=== PATIENT | female | born 1965 | race Two or more races ===

== ENCOUNTER 2018-04-26 17:22 | Emergency (ER) | payer OTHER ==
[~2018-04-26] VITALS: Ht 167.6 cm; Wt 81.6 kg
[2018-04-26] MEDS ORDERED: ZYRTEC10 M3 (17:57)
[2018-04-26] MEDS ORDERED: CLARITIN10 MG (17:57)
[2018-04-26] MEDS ORDERED: ALLEGRA ALLERGY60 MG (17:57)
[2018-04-26] MEDS ORDERED: ALBUTEROL S5 MG/1 ML (17:58)
== END 2018-04-26 21:32 | disposition home or self-care (01) ==
LOC: ER 17:22
DX: J45.998 Other asthma (principal)

== ENCOUNTER 2018-06-01 15:22 | Outpatient (CLI) | payer OTHER ==
[~2018-06-01 15:22] MED LIST: ALBUTEROL S5 MG/1 ML; ALLEGRA ALLERGY60 MG; CLARITIN10 MG; ZYRTEC10 M3
== END 2018-06-01 16:43 | disposition home or self-care (01) ==
LOC: SONOGRAMA 15:22
DX: Z12.31 Encounter for screening mammogram for malignant neoplasm of breast (principal); N60.11 Diffuse cystic mastopathy of right breast; N60.12 Diffuse cystic mastopathy of left breast; E04.1 Nontoxic single thyroid nodule

== ENCOUNTER 2019-08-14 10:31 | Outpatient (CLI) | payer OTHER | END 2019-08-14 11:05 | disposition home or self-care (01) | LOC: NUCLEAR 10:31 | DX: M85.80 Other specified disorders of bone density and structure, unspecified site (principal); Z13.820 Encounter for screening for osteoporosis; N95.1 Menopausal and female climacteric states ==

== ENCOUNTER → 2019-08-14 | Outpatient (CLI) | payer OTHER | END | disposition home or self-care (01) | LOC: MAMO-SONO 11:15 | DX: N64.4 Mastodynia (principal); R92.2 Inconclusive mammogram; N63.10 Unspecified lump in the right breast, unspecified quadrant; N63.20 Unspecified lump in the left breast, unspecified quadrant; Z78.0 Asymptomatic menopausal state; Z78.9 Other specified health status; N60.19 Diffuse cystic mastopathy of unspecified breast ==

== ENCOUNTER 2020-02-11 14:16 | Outpatient (CLI) | payer OTHER | END 2020-02-11 14:32 | disposition home or self-care (01) | LOC: TOM 14:16 | PROVIDERS: ATTEND Otolaryngology | DX: J33.0 Polyp of nasal cavity (principal); J33.8 Other polyp of sinus ==

== ENCOUNTER → 2020-10-20 12:13 | Outpatient (CLI) | payer OTHER | END | disposition home or self-care (01) | LOC: PPH VACUNA 12:13 | DX: Z23 Encounter for immunization (principal) ==

== ENCOUNTER 2020-12-08 12:14 | Outpatient (CLI) | payer OTHER | END 2020-12-08 14:49 | disposition home or self-care (01) | LOC: MAMO-SONO 12:14 → SONOGRAMA 12:14 → MAMO-SONO 14:49 | PROVIDERS: ATTEND Obstetrics & Gynecology Gynecology | DX: Z78.0 Asymptomatic menopausal state (principal); R92.2 Inconclusive mammogram; Z80.3 Family history of malignant neoplasm of breast ==

== ENCOUNTER 2020-12-08 14:53 | Outpatient (CLI) | payer OTHER | END 2020-12-08 14:54 | disposition home or self-care (01) | LOC: NUCLEAR 14:53 | PROVIDERS: ATTEND Obstetrics & Gynecology Gynecology | DX: N95.1 Menopausal and female climacteric states (principal); Z13.820 Encounter for screening for osteoporosis; M81.0 Age-related osteoporosis without current pathological fracture ==

== ENCOUNTER 2021-07-15 08:00 | Outpatient (CLI) | payer OTHER | END 2021-07-15 08:30 | disposition home or self-care (01) | LOC: PPH VACUNA 08:00 | PROVIDERS: ATTEND Emergency Medicine Pediatric Emergency Medicine | DX: Z23 Encounter for immunization (principal) ==

== ENCOUNTER 2022-03-24 10:23 | Outpatient (CLI) | payer OTHER | END 2022-03-24 10:30 | disposition home or self-care (01) | LOC: MAMO-SONO 10:23 | PROVIDERS: ATTEND Specialist | DX: Z12.31 Encounter for screening mammogram for malignant neoplasm of breast (principal); N63.0 Unspecified lump in unspecified breast ==

== ENCOUNTER 2022-11-13 05:37 | Inpatient (IN) | payer OTHER ==
[~2022-11-13] VITALS: Ht 165.1 cm; Wt 68.0 kg
--- NOTE | 2022-11-13 05:42 | NUR ---
SE RECIBE PTE EN AMBULANCIA SIN ACOMPANANTE, LA MISMA ORINETADA Y ALERTA X3 REFIERE PRESENTAR DOLOR ABDOMINAL BREANNA EL CESAR DE HOY. SE ACOMODA EN SULMA CON BARANDAS ELEVADAS PARA SER EVALUADA POR EL DOCTOR EN TURNO.
--- NOTE | 2022-11-13 06:17 | NUR ---
PTE EVALUADO POR DR. NASH SE EJECUTA ORDEN MEDICA Y SE REALIZA GET DE MUESTRA BAJO MEDIDAS ASEPTICAS Y SE CANALIZA #18 MANO RT SE OBSERVA AREA LAINEY EDEMAS Y ENROJECIMIENTO.
--- NOTE | 2022-11-13 07:19 | NUR ---
SE RECIBE PTE ALERTA Y ORIENTADO POR 3 EN EL AREA DE OBSERVACION EN SULMA CON BARANDAS ELEVADA Y TIMBRE ACCESIBLE PTE NO PRESENTA DOLOR AL MOMENTO, SE OBSERVA VENOPUNCION PATENTE Y LAINEY DE EDEMA PTE SE MANTIENE EN OBSERVACIONM Y BAJO TRATAMIENTO. PTE EN ESEPRA DE ESTUDIO DE CT
--- NOTE | 2022-11-13 14:51 | NUR ---
SE RECIBE PTE FEMENINA DE 57 ANOS ALERTA Y ORIENTADA X3 QUIEN AL MOMENTO NO REFIERE DOLOR PTE AL MOMENTO CANALIZADO EN MANO IZQ RECIBE RL A 150 MLS/HRA. PTE PEND A CONSULTA.
--- NOTE | 2022-11-13 15:42 | NUR ---
SE RECIBE PTE CON TEMPERATURA 100.3 LA MISMO REFIERE QUE YA LE HABIAN ADMINISTRADO ACETAMINOPHEN DEL TURNO ANTERIOR.
[2022-11-15] MEDS ORDERED: ROSUVASTATIN CAL5 MG (15:07)
== END 2022-11-20 10:49 | disposition home or self-care (01) | DRG 339 ==
LOC: ER 05:37 → SURH 17:55
PROVIDERS: Surgery; ADMIT Internal Medicine; ATTEND Internal Medicine
PROC: BW21YZZ Computerized Tomography (CT Scan) of Abdomen and Pelvis using Other Contrast (ICD-10-PCS; 2022-11-13)
PROC: 0DTJ4ZZ Resection of Appendix, Percutaneous Endoscopic Approach (ICD-10-PCS; principal; 2022-11-13 20:00)
PROC: BW21YZZ Computerized Tomography (CT Scan) of Abdomen and Pelvis using Other Contrast (ICD-10-PCS; 2022-11-18)
PROC: 0W9G3ZZ Drainage of Peritoneal Cavity, Percutaneous Approach (ICD-10-PCS; 2022-11-19)
DX: K35.33 Acute appendicitis with perforation, localized peritonitis, and gangrene, with abscess (principal); J45.901 Unspecified asthma with (acute) exacerbation; K90.49 Malabsorption due to intolerance, not elsewhere classified

== ENCOUNTER 2022-11-24 09:17 | Outpatient (CLI) | payer OTHER ==
[~2022-11-24 09:17] MED LIST changes: +ROSUVASTATIN CAL5 MG
== END 2022-11-24 09:35 | disposition home or self-care (01) ==
LOC: TOM 09:17
DX: K35.21 Acute appendicitis with generalized peritonitis, with abscess (principal)

== ENCOUNTER 2023-07-27 10:22 | Outpatient (CLI) | payer OTHER | END 2023-07-27 10:27 | disposition home or self-care (01) | LOC: RAD 10:22 | DX: G89.18 Other acute postprocedural pain (principal); M25.561 Pain in right knee ==

== ENCOUNTER → 2023-10-24 15:03 | Outpatient (CLI) | payer OTHER | END | disposition home or self-care (01) | LOC: NUCLEAR 15:00 | PROVIDERS: ATTEND Emergency Medicine Pediatric Emergency Medicine | DX: Z01.810 Encounter for preprocedural cardiovascular examination (principal); M81.0 Age-related osteoporosis without current pathological fracture; E78.9 Disorder of lipoprotein metabolism, unspecified; E55.9 Vitamin D deficiency, unspecified; M54.59 Other low back pain ==

== ENCOUNTER 2023-10-24 16:32 | Outpatient (CLI) | payer OTHER | END 2023-10-24 16:37 | disposition home or self-care (01) | LOC: MAMO-SONO 16:32 | PROVIDERS: ATTEND Internal Medicine | DX: Z12.31 Encounter for screening mammogram for malignant neoplasm of breast (principal); Z01.810 Encounter for preprocedural cardiovascular examination; E55.9 Vitamin D deficiency, unspecified; E78.9 Disorder of lipoprotein metabolism, unspecified ==

== ENCOUNTER 2024-07-30 15:10 | Outpatient (CLI) | payer OTHER | END 2024-07-30 15:36 | disposition home or self-care (01) | LOC: SONOGRAMA 15:10 | PROVIDERS: ATTEND Internal Medicine | DX: N63.11 Unspecified lump in the right breast, upper outer quadrant (principal); N63.12 Unspecified lump in the right breast, upper inner quadrant; N60.12 Diffuse cystic mastopathy of left breast; I10 Essential (primary) hypertension; Z01.810 Encounter for preprocedural cardiovascular examination; E78.9 Disorder of lipoprotein metabolism, unspecified; E55.9 Vitamin D deficiency, unspecified; Z13.820 Encounter for screening for osteoporosis; K80.46 Calculus of bile duct with acute and chronic cholecystitis without obstruction; N83.299 Other ovarian cyst, unspecified side ==

== ENCOUNTER 2024-11-19 12:29 | Inpatient (IN) | payer OTHER ==
[~2024-11-19] VITALS: Ht 167.6 cm; Wt 68.0 kg
--- NOTE | 2024-11-19 13:09 | NUR ---
SE PRESENTA PACIENTE ALERTA X 3. LA MISMA REFIERE TENER DEBILIDAD, ESCALOFRIOS, MAREOS Y DOLOR DE PECHO. SE PROCEDE A TONY LOS S/V Y UN EKG. EL MISMO SE LE PRESENTA AL DR. CORBETT. EL SE UBICA A LA PACIENTE EN SULMA 07 CON BARANDAS ELEVADAS Y NIVEL MAS BAJO.
[2024-11-19] MEDS ORDERED: 0.9 % SODIUM CHLORIDE 1,000 ML IV SCH ×2 (13:30→20:15)
[2024-11-19 14:20] LABS: HEMATOCRIT 35.4 % (36.0-45.00); MEAN CELL VOLUME 90.8 fL (80.00-100.00); MEAN CORPUSCULAR HEMOGLOBIN 30.7 pg (27.00-32.0); MEAN CORPUSCULAR HGB CONC 33.8 g/dl (32.0-36.0); PLATELET COUNT 285 K/uL (150-450); RED CELL DISTRIBUTION WIDTH 12.7 % (11.5-14.5)
[2024-11-19] MEDS ORDERED: FAMOTIDINE/PF 20 MG/2 ML VIAL ONE (14:32)
--- NOTE | 2024-11-19 15:19 | NUR ---
SE EJECUTAN ORDENES MEDICAS EN PHIPPS TOTALIDAD
[2024-11-19 16:16] LABS: PH,URINE 5.5 (5.0-8.0); URINE APPEARANCE Cloudy; URINE BILIRRUBIN Negative (NEGATIVE); URINE BLOOD Small; URINE COLOR Dark Yellow; URINE GLUCOSE Negative (NEGATIVE); URINE KETONE 15 (NEGATIVE); URINE LEUKOCYTE Trace; URINE NITRATE Negative; URINE PROTEIN Trace (NEGATIVE); URINE UROBILINOGEN 0.2 E.U./dl
[2024-11-19 16:20] LABS: URINE BACTERIA 1512.7 uL (0.0-1933); URINE EPITHELIAL CELLS 17.2 uL (0.0-38.8); URINE RBC 45.8 uL (0.0-20.8); URINE WBC 284.1 uL (0.0-23.2)
[2024-11-19 16:22] LABS: URINE CAST 0.44 uL (0.0-1.40)
[2024-11-19 17:37] LABS: ALBUMIN 3.9 gm/dL (3.4-5.0); BILIRUBIN TOTAL 0.34 mg/dL (0.3-1.2); CALCIUM 9.4 mg/dL (8.5-10.1); CREATININE SERUM 0.58 mg/dL (0.55-1.02); GFR 105.69; GLOBULINA 3.1 G/DL (2.4-3.5); POTASSIUM 4.35 mEq/L (3.5-5.1); TSH 0.425 uIU/mL (0.358-3.74)
--- NOTE | 2024-11-19 17:48 | NUR ---
SE RECIBE LLAMADA DE LABORATORIO DE MS D GODOY REPORTANDO TROPONINAS EN , SE LE REPORTAN AL DR. HOSIKNS EL CUAL ORDENA SOFTWARE DEVELOPER MID LEVEL A AREA DE CRITICO.
[2024-11-19] MEDS ORDERED: NITROGLYCERIN IN 5 % DEXTROSE 50 MG/250 ML BOTTLE IV ONE (17:59)
--- NOTE | 2024-11-19 18:13 | NUR ---
SE RECIBE PACIENTE EN SULMA A AREA DE CRITICO DE [place] EN CAMA CELESTINA # 2 SE CONECTA A MONITOR CARDIACO Y OXIMETRIA DE PULSO. SE REALIZA EKG Y SE PRESENTA A DR. HOSKINS SE ADMINITRA MEDICAMENTOS CHET ORDEN MEDICA
[2024-11-19] MEDS ORDERED: NITROGLYCERIN 250 ML IV SCH (18:15)
[2024-11-19] MEDS ORDERED: 0.9 % SODIUM CHLORIDE 1,000 ML IV ONE (18:15)
[2024-11-19] MEDS ORDERED: TICAGRELOR 90 MG TABLET PO ONE (18:15)
[2024-11-19] MEDS ORDERED: ASPIRIN 325 MG TABLET PO ONE (18:15)
[2024-11-19] MEDS ORDERED: NITROGLYCERIN IN 5 % DEXTROSE 250 ML IV SCH (19:15)
[2024-11-19] MEDS ORDERED: ATORVASTATIN CALCIUM 40 MG TABLET PO SCH (20:01)
[2024-11-19] MEDS ORDERED: ACETAMINOPHEN 500 MG GEL..CAP PO PRN (20:15)
[2024-11-19] MEDS ORDERED: ENOXAPARIN SODIUM 60 MG/0.6 ML SYRINGE SUBCUTANEO ONE (20:17)
[2024-11-19 21:00] LABS: D DIMER 0.45 MG/L; PARTIAL THROMBOPLASTIN TIME 23.3 SECONDS (22.0-34.0)
[2024-11-19] MEDS ORDERED: ENOXAPARIN SODIUM 60 MG/0.6 ML SYRINGE SUBCUTANEO SCH (21:00)
[2024-11-19 21:03] LABS: INR 1.01
[2024-11-19 21:04] VITALS: BP 92/47; O2SAT 100
[2024-11-19 21:27] LABS: TROPONIN I hs 9455.2 PG/ML (42.2-82.3)
[2024-11-19 21:49] LABS: ALT/SGPT 37 U/L (12-78); AST/SGOT 66 U/L (15-37); LDH 190 U/L (84-246); PHOSPHOKINASE CREATININE 491 U/L (26-192)
[2024-11-19 22:00] VITALS: BP 110/55; O2SAT 98
[2024-11-19] MEDS ORDERED: ACETAMINOPHEN 500 MG GEL..CAP PO ONE (22:55)
[2024-11-19 23:47] VITALS: BP 99/51; O2SAT 97
[2024-11-20 02:00] VITALS: BP 98/50; O2SAT 97
[2024-11-20] MEDS ORDERED: TICAGRELOR 90 MG TABLET PO ONE (04:30)
[2024-11-20] MEDS ORDERED: TICAGRELOR 90 MG TABLET PO SCH (05:00)
[2024-11-20 05:04] VITALS: BP 101/55; O2SAT 99
[2024-11-20 06:47] VITALS: BP 111/55; O2SAT 98
[2024-11-20 07:27] VITALS: BP 102/61; O2SAT 100
[2024-11-20 08:23] LABS: CHOL HDL RATIO 2.6 (0-5.0)
[2024-11-20 08:24] LABS: TSH 0.718 uIU/mL (0.358-3.74)
[2024-11-20] MEDS ORDERED: ASPIRIN 81 MG TABLET.EC PO SCH (09:00)
[2024-11-20] MEDS ORDERED: FAMOTIDINE/PF 20 MG in 0.9 % SODIUM CHLORIDE 8 ML IV PUSH SCH (09:00)
[2024-11-20] MEDS ORDERED: ASPIRIN 81 MG TAB.CHEW PO SCH (09:00)
== END 2024-11-20 09:50 | disposition designated cancer center or children's hospital (05) | DRG 280 ==
LOC: ER 12:29 → ICU-2 20:07 → ER 11-20 01:54 → ICU-2 11-20 09:50
PROVIDERS: Emergency Medicine; General Practice; ADMIT Internal Medicine; ATTEND Internal Medicine
PROC: B246ZZZ Ultrasonography of Right and Left Heart (ICD-10-PCS; principal; 2024-11-19)
DX: I24.9 Acute ischemic heart disease, unspecified (principal); K35.219 Acute appendicitis with generalized peritonitis, with abscess, unspecified as to perforation; I21.3 ST elevation (STEMI) myocardial infarction of unspecified site; J45.901 Unspecified asthma with (acute) exacerbation; K35.891 Other acute appendicitis without perforation, with gangrene; B96.20 Unspecified Escherichia coli [E. coli] as the cause of diseases classified elsewhere; B96.1 Klebsiella pneumoniae [K. pneumoniae] as the cause of diseases classified elsewhere; B95.4 Other streptococcus as the cause of diseases classified elsewhere; B96.89 Other specified bacterial agents as the cause of diseases classified elsewhere; R07.89 Other chest pain; K52.9 Noninfective gastroenteritis and colitis, unspecified; R10.31 Right lower quadrant pain

== ENCOUNTER 2025-05-07 14:16 | Outpatient (CLI) | payer OTHER | END 2025-05-07 14:17 | disposition home or self-care (01) | LOC: SONOGRAMA 14:16 | PROVIDERS: ATTEND Obstetrics & Gynecology Gynecology | DX: R10.20 Pelvic and perineal pain unspecified side (principal) ==